=== PATIENT | male | born 1960 | race Caucasian/White ===

== ENCOUNTER 2021-11-02 17:05 | Emergency (ER) | payer SELFPAY ==
[~2021-11-02] VITALS: Ht 177.8 cm; Wt 101.0 kg
[2021-11-02 17:13] VITALS: BP 122/76
[2021-11-02] MEDS ORDERED: P50 PO (17:42)
[2021-11-02] MEDS ORDERED: DEXT15DR5 EACHEYE (17:42)
[2021-11-02] MEDS ORDERED: VALA100044 MT (17:42)
== END 2021-11-02 18:27 | disposition home or self-care (01) ==
LOC: ER 17:05
DX: G51.0 Bell's palsy (principal); I10 Essential (primary) hypertension; E11.9 Type 2 diabetes mellitus without complications; Z86.73 Personal history of transient ischemic attack (TIA), and cerebral infarction without residual deficits
CPT/HCPCS: 99283